=== PATIENT | male | born 2000 | race Caucasian/White ===

== ENCOUNTER 2019-11-30 21:44 | Emergency (ER) | payer SELFPAY ==
[~2019-11-30] VITALS: Ht 182.9 cm; Wt 81.7 kg
[~2019-11-30 21:44] MED LIST: PRED10 PO; PRED15SY PO
[2019-11-30] MEDS ORDERED: IBUP800 PO (22:12)
== END 2019-11-30 22:42 | disposition home or self-care (01) ==
LOC: ER 21:44
DX: S63.501A Unspecified sprain of right wrist, initial encounter (principal); S00.83XA Contusion of other part of head, initial encounter; F17.210 Nicotine dependence, cigarettes, uncomplicated; W11.XXXA Fall on and from ladder, initial encounter
CPT/HCPCS: 73110; 99283-25

== ENCOUNTER 2020-01-07 09:11 | Emergency (ER) | payer SELFPAY ==
[~2020-01-07] VITALS: Ht 182.9 cm; Wt 81.7 kg
[~2020-01-07 09:11] MED LIST changes: +IBUP800 PO
== END 2020-01-07 09:44 | disposition home or self-care (01) ==
LOC: ER 09:11
DX: J02.9 Acute pharyngitis, unspecified (principal); F17.210 Nicotine dependence, cigarettes, uncomplicated
CPT/HCPCS: 99282